=== PATIENT | male | born 1980 | race Hispanic/Latino ===

== ENCOUNTER 2017-08-09 09:32 | Inpatient (IN) | payer OTHER ==
[~2017-08-09] VITALS: Ht 167.6 cm; Wt 82.0 kg
[2017-08-09 09:49] LABS: BASOPHIL COUNT 0.1 K/uL (0-0.1); EOSINOPHIL COUNT 0.1 K/uL (0-0.3); HEMATOCRIT 40.7 % (38.0-50.0); IMMATURE GRANULOCYTE (%) 0.7 % (0.0-0.7); IMMATURE GRANULOCYTE COUNT 0.1 K/uL; INSTRUMENT ABS NEUTROPHIL CT 3.8 K/uL; LYMPHOCYTE COUNT 2.3 K/uL (1.0-2.8); MCH 29.3 PG (29.0-34.0); MCHC 33.2 G/DL (30.0-36.0); MCV 88.5 FL (86-99); MEAN PLAT.VOLUME 10.2 uM^3 (9.0-12.4); MONOCYTE (%) 10.1 % (3-12); MONOCYTE COUNT 0.7 K/uL (0-0.8); NEUTROPHIL (%) 53.4 % (45-76); NEUTROPHIL COUNT 3.8 K/uL (1.8-6.4); PLATELET COUNT 299 K/uL (156-360); RBC DIS.WIDTH-CV 12.2 % (11.8-14.6); RBC DIS.WIDTH-SD 39.9 % (39-53); WHITE BLOOD COUNT 7.1 K/uL (4.1-10.2)
[2017-08-09 09:59] LABS: AMYLASE 97 IU/L (1-118); CHLORIDE 104 mEq/L (99-109); POTASSIUM 4.9 mEq/L (3.7-5.4); SODIUM 136 mEq/L (136-147)
[2017-08-09 10:01] LABS: GLUCOSE 111 mg/dL (70-99)
[2017-08-09 10:02] LABS: ANION GAP 12 MEQ/L (2-14)
[2017-08-09 10:04] LABS: SERUM ETHYL ALCOHOL < 10 mg/dL
[2017-08-09 10:06] LABS: GFR ESTIMATE (CALCULATED) > 59 mL/min/; UREA NITROGEN (BUN) 15 mg/dL (9-23)
[2017-08-09 10:08] LABS: LIPASE 48 U/L (1.0-51.0)
[2017-08-09 15:30] VITALS: BP 134/67; BP 148/65
[2017-08-09 20:30] VITALS: BP 133/95
[2017-08-09 23:33] VITALS: BP 130/90
[2017-08-10 04:28] VITALS: BP 113/86
[2017-08-10 06:32] LABS: MCH 30.7 PG (29.0-34.0); MCHC 33.8 G/DL (30.0-36.0); MCV 90.9 FL (86-99); MEAN PLAT.VOLUME 10.6 uM^3 (9.0-12.4); PLATELET COUNT 220 K/uL (156-360); RBC DIS.WIDTH-CV 12.4 % (11.8-14.6); RBC DIS.WIDTH-SD 41.1 % (39-53); RED BLOOD COUNT 4.07 M/uL (4.00-5.50); WHITE BLOOD COUNT 11.9 K/uL (4.1-10.2)
[2017-08-10 06:59] LABS: ALKALINE PHOSPHATASE 59 IU/L (3-129); ANION GAP 9 MEQ/L (2-14); CHLORIDE 101 MEQ/L (99-109); GFR ESTIMATE (CALCULATED) > 59 mL/min/; GLUCOSE 125 mg/dL (70-99); SAMPLE HEMOLYSIS CHECK 0; SAMPLE ICTERIC CHECK 0; SAMPLE LIPEMIA CHECK 0; SODIUM 135 MEQ/L (136-147); UREA NITROGEN (BUN) 10 mg/dL (9-23)
[2017-08-10 07:00] LABS: POTASSIUM 3.9 MEQ/L (3.7-5.4)
[2017-08-10 07:45] VITALS: BP 116/62
[2017-08-10 16:50] VITALS: BP 100/65
[2017-08-10 20:00] VITALS: BP 133/69
[2017-08-11 00:22] VITALS: BP 122/69
[2017-08-11 04:47] VITALS: BP 117/61
[2017-08-11 08:01] VITALS: BP 127/70
[2017-08-11 19:36] VITALS: BP 120/67
[2017-08-11 23:22] VITALS: BP 129/68
[2017-08-12 03:31] VITALS: BP 132/81
[2017-08-12 08:21] VITALS: BP 133/61
[2017-08-12] MEDS ORDERED: OXAYDO5 MG PO (09:30)
[2017-08-12 11:05] VITALS: BP 129/73
== END 2017-08-12 13:19 | disposition home or self-care (01) | DRG 563 ==
LOC: TRA 09:32 → 3EAST 13:49 → EDOF 13:49 → ENRESERV 13:50 → EDOF 14:06 → ENRESERV 14:07 → 3EAST 14:46
PROVIDERS: Emergency Medicine; Surgery
DX: S92.001A Unspecified fracture of right calcaneus, initial encounter for closed fracture (principal); S22.43XA Multiple fractures of ribs, bilateral, initial encounter for closed fracture; S27.321A Contusion of lung, unilateral, initial encounter; J98.11 Atelectasis; V43.52XA Car driver injured in collision with other type car in traffic accident, initial encounter; F17.210 Nicotine dependence, cigarettes, uncomplicated; Y92.410 Unspecified street and highway as the place of occurrence of the external cause
CPT/HCPCS: 70450; 71020; 71260; 72125; 72129; 72132; 73610; 73700; 74177; 80048; 80053; 81003; 82150; 83690; 85025; 85027; 86850; 86900; 86901; 93005; 94010; 94640; 94640 76; 99202; 99281; 99285; G0480; J1650; J2270; J3010; J7030; S0028